=== PATIENT | male | born 1960 ===

== ENCOUNTER 2018-07-31 08:01 | Observation (INO) | payer OTHER ==
[~2018-07-31] VITALS: Ht 177.8 cm; Wt 117.9 kg
[2018-07-31] MEDS ORDERED: NS(*) 0.9% 1000 ML BAG 1,000 ML IV ONE (08:20)
--- NOTE | 2018-07-31 08:38 | ER Report ---
History and Physical Time Seen By MD: 08:05 Hx. of Stated Complaint: CP SINCE 0300 HPI/ROS CHIEF COMPLAINT: Chest pain HISTORY OF PRESENT ILLNESS: 58-year-old male with history of cardiac catheterization in 2009 showing 50% occlusion of the LAD by his report, presents with chest pressure that began at 3 AM and woke him up and continued through the night. Patient states that pressure has been severe, feels like pressure, radiates across chest and to his shoulders. It does not radiate to jaw, arms, back. He has had chest pain before but not like this. It is associated with lightheadedness. EMS administered 3 aspirin as well as 3 nitroglycerin, after which his pressure improved to 2 out of 10. It is currently 1-1/2 out of 10. It is now persisted for 5 hours consistently. 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 He has no leg pain. He has never had a DVT or PE. He does have a family history of coronary artery disease with a father who had multiple heart attacks. He is treated for hypertension and hypercholesterol though does not use tobacco. He has been told he has prediabetes but is not on insulin. REVIEW OF SYSTEMS: Constitutional: No fever, no chills; lightheaded as above Eyes: no blurred vision ENT: No sore throat. Cardiovascular: above Respiratory: No cough, no shortness of breath. Gastrointestinal: No abdominal pain, no vomiting. Genitourinary: no dysuria Musculoskeletal: No back pain. Skin: No rashes. Neurological: lightheaded as above Remainder of the 14 system rev: Yes Allergies: Coded Allergies: oxycodone (Verified Allergy, Intermediate, N/V, 07/31/18) Home Meds Reported Medications Lisinopril (LISINOPRIL) 20 Mg Tablet, 20 MG PO QDAY, TAB 07/31/18 Aspirin (ASPIR 81) 81 Mg Tablet.dr, 81 MG PO QDAY, TAB 07/31/18 Multivitamin (MULTIVITAMINS) 1 Each Capsule, 1 EACH PO QDAY, CAPSULE 07/31/18 Atorvastatin Calcium (LIPITOR) 40 Mg Tablet, 1 TAB PO QDAY, TAB 07/31/18 Celecoxib (CELEBREX) 200 Mg Capsule, 200 MG PO QDAY, CAPSULE 07/31/18 Reviewed Nurses Notes: Yes Constitutional Vital Sign - Last 24 Hours 07/31/18 07/31/18 07/31/18 07/31/18 08:11 08:11 08:30 09:00 Temp 98.0 Pulse 68 67 61 Resp 20 12 10 B/P (MAP) 124/78 128/78 (95) 123/71 (88) Pulse Ox 97 98 98 O2 Delivery Room Air O2 Flow Rate 2.0 07/31/18 07/31/18 07/31/18 07/31/18 09:30 10:00 10:30 11:00 Pulse 68 59 62 66 Resp 16 15 17 24 B/P (MAP) 130/73 (92) 114/72 (86) 128/76 (93) 137/80 (99) Pulse Ox 98 98 98 100 07/31/18 12:00 Pulse 69 Resp 16 Pulse Ox 99 Physical Exam General Appearance: The patient is alert, has no immediate need for airway protection and no signs of toxicity. [ ] Eyes: Pupils equal and round no pallor or injection. ENT, Mouth: Mucous membranes are moist. Respiratory: There are no retractions, lungs are clear to auscultation. Cardiovascular: Regular rate and rhythm. no m/r/g. No carotid bruit Gastrointestinal: Abdomen is soft and non tender, no masses, bowel sounds normal. Neurological: alert, moves all ext Skin: Warm and dry, no rashes. Musculoskeletal: Neck is supple non tender. Extremities are nontender; pt has very mild bilat lower extremity edema; he has full range of motion. DIFFERENTIAL DIAGNOSIS: After history and physical exam differential diagnosis was considered for chest pain including but not limited to myocardial ischemia, pericarditis, aortic dissection, pulmonary embolus, chest wall pain, pleural inflammation and pulmonary infectious causes. Medical Decision Making Data Points Result Diagram: 07/31/18 0810 07/31/18 0810 Laboratory Hematology Test 07/31/18 08:10 Red Blood Count 4.50 M/uL (4.00-5.60) Mean Corpuscular Volume 89.0 fL (80.0-96.0) Mean Corpuscular Hemoglobin 30.4 pg (26.0-33.0) Mean Corpuscular Hemoglobin Concent 34.2 g/dL (32.0-36.0) Red Cell Distribution Width 14.9 % (11.5-14.5) Mean Platelet Volume 8.0 fL (7.2-11.1) Neutrophils (%) (Auto) 68.3 % (39.4-72.5) Lymphocytes (%) (Auto) 20.3 % (17.6-49.6) Monocytes (%) (Auto) 9.1 % (4.1-12.4) Eosinophils (%) (Auto) 1.6 % (0.4-6.7) Basophils (%) (Auto) 0.7 % (0.3-1.4) Nucleated RBC Relative Count (auto) 0.0 /100WBC Neutrophils # (Auto) 5.2 K/uL (2.0-7.4) Lymphocytes # (Auto) 1.6 K/uL (1.3-3.6) Monocytes # (Auto) 0.7 K/uL (0.3-1.0) Eosinophils # (Auto) 0.1 K/uL (0.0-0.5) Basophils # (Auto) 0.1 K/uL (0.0-0.1) Nucleated RBC Absolute Count (auto) 0.00 K/uL Prothrombin Time 12.9 seconds (12.0-14.4) Prothromb Time International Ratio 0.97 Activated Partial Thromboplast Time 26 seconds (23-35) D-Dimer Quantitative (PE/DVT) < 0.27 ug/ml (0-0.50) Sodium Level 142 mmol/L (137-145) Potassium Level 3.7 mmol/L (3.5-5.0) Chloride Level 109 mmol/L (98-107) Carbon Dioxide Level 26 mmol/L (22-30) Blood Urea Nitrogen 17 mg/dl (9-21) Creatinine 1.00 mg/dl (0.66-1.25) Glomerular Filtration Rate Calc > 60.0 Random Glucose 104 mg/dl (75-110) Calcium Level 8.7 mg/dl (8.4-10.2) Total Bilirubin 0.7 mg/dl (0.2-1.3) Aspartate Amino Transf (AST/SGOT) 30 U/L (0-35) Alanine Aminotransferase (ALT/SGPT) 34 U/L (0-56) Alkaline Phosphatase 149 U/L (0-126) B-Type Natriuretic Peptide 10 pg/ml (0-100) Total Protein 6.7 g/dl (6.3-8.2) Albumin 3.8 g/dl (3.5-5.0) Lipase 191 U/L (23-300) Chemistry Test 07/31/18 08:10 White Blood Count 7.7 k/uL (4.5-11.0) Red Blood Count 4.50 M/uL (4.00-5.60) Hemoglobin 13.7 g/dL (14.0-18.0) Hematocrit 40.0 % (42.0-52.0) Mean Corpuscular Volume 89.0 fL (80.0-96.0) Mean Corpuscular Hemoglobin 30.4 pg (26.0-33.0) Mean Corpuscular Hemoglobin Concent 34.2 g/dL (32.0-36.0) Red Cell Distribution Width 14.9 % (11.5-14.5) Platelet Count 302 K/uL (150-450) Mean Platelet Volume 8.0 fL (7.2-11.1) Neutrophils (%) (Auto) 68.3 % (39.4-72.5) Lymphocytes (%) (Auto) 20.3 % (17.6-49.6) Monocytes (%) (Auto) 9.1 % (4.1-12.4) Eosinophils (%) (Auto) 1.6 % (0.4-6.7) Basophils (%) (Auto) 0.7 % (0.3-1.4) Nucleated RBC Relative Count (auto) 0.0 /100WBC Neutrophils # (Auto) 5.2 K/uL (2.0-7.4) Lymphocytes # (Auto) 1.6 K/uL (1.3-3.6) Monocytes # (Auto) 0.7 K/uL (0.3-1.0) Eosinophils # (Auto) 0.1 K/uL (0.0-0.5) Basophils # (Auto) 0.1 K/uL (0.0-0.1) Nucleated RBC Absolute Count (auto) 0.00 K/uL Prothrombin Time 12.9 seconds (12.0-14.4) Prothromb Time International Ratio 0.97 Activated Partial Thromboplast Time 26 seconds (23-35) D-Dimer Quantitative (PE/DVT) < 0.27 ug/ml (0-0.50) Glomerular Filtration Rate Calc > 60.0 Calcium Level 8.7 mg/dl (8.4-10.2) Total Bilirubin 0.7 mg/dl (0.2-1.3) Aspartate Amino Transf (AST/SGOT) 30 U/L (0-35) Alanine Aminotransferase (ALT/SGPT) 34 U/L (0-56) Alkaline Phosphatase 149 U/L (0-126) B-Type Natriuretic Peptide 10 pg/ml (0-100) Total Protein 6.7 g/dl (6.3-8.2) Albumin 3.8 g/dl (3.5-5.0) Lipase 191 U/L (23-300) Coagulation Test 07/31/18 08:10 Prothrombin Time 12.9 seconds Prothromb Time International Ratio 0.97 Activated Partial Thromboplast Time 26 seconds D-Dimer Quantitative (PE/DVT) < 0.27 ug/ml EKG/Imaging EKG Interpretation 12 lead EKG: Rhythm: Normal sinus rhythm [place]: Normal QRS: Normal ST segments: Normal Rate 65; no st elevation or depression; 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 He has multiple cardiac risk factors and a heart score greater than 4. His EKG 2 and troponin are negative in the emergency department however I am concerned for anginal chest pain and we will admit for telemetry and continued monitoring. While he may need a cardiac catheterization if he does not have EKG or troponin changes in hospitalization he may not receive an inpatient cardiac catheterization, so it is reasonable to monitor him here. I also considered infection, PE, aortic dissection or other emergent etiology. However these are less likely after ED monitoring. Patient continues to feel mildly uncomfortable though without chest pressure while awaiting admission. Procedure Results: I performed ED echocardiogram ultrasound. The results of the study are no significant effusion, LV > RV, no gross wall motion abnormality. I performed and read the study myself. Decision to Disposition Date: Jul 31, 2018 Decision to Disposition Time: 11:50 Depart Departure Latest Vital Signs Vital Signs Date Time Temp Pulse Resp B/P (MAP) Pulse Ox O2 Delivery O2 Flow Rate FiO2 07/31/18 12:00 69 16 99 07/31/18 11:00 137/80 (99) 07/31/18 08:11 2.0 07/31/18 08:11 98.0 Room Air Impression: Primary Impression: Chest pain Condition: Improved Disposition: Admitted from ER Problem Qualifiers Primary Impression: Chest pain Chest pain type: unspecified Qualified Codes: R07.9 - Chest pain, unspecified SEAN DELANEY MD Jul 31, 2018 08:38
[2018-07-31 08:40] LABS: PLATELET COUNT, AUTOMATED 302 K/uL (150-450)
[2018-07-31 08:46] LABS: INR 0.97
--- NOTE | 2018-07-31 08:47 | EKG ---
FACILITY: [facility] - [place] PATIENT NAME: SHANTANU HUGHES : [id number] MR: [id number] V: [id number] EXAM DATE: ORDERING PHYSICIAN: SEAN DELANEY TECHNOLOGIST: LIZ Test Reason : CP Blood Pressure : / mmHG Vent. Rate : 065 BPM Atrial Rate : 065 BPM P-R Int : 164 ms QRS Dur : 098 ms QT Int : 404 ms P-R-T Axes : -13 002 026 degrees QTc Int : 420 ms Normal sinus rhythm Normal ECG No previous ECGs available Confirmed by Vineet Merchant ([id number]) on 08/01/2018 12:19:18 AM Referred By: ELAINA Confirmed By:Vineet Hester
--- NOTE | 2018-07-31 08:59 | RADIOLOGY IMAGING REPORT ---
FACILITY: [facility] - [place] PATIENT NAME: Nacho Valladares : 1960 MR: [id number] V: [id number] EXAM DATE: ORDERING PHYSICIAN: SEAN DELANEY TECHNOLOGIST: Location: [facility] Patient: Nacho Valladares : 1960 Visit/Account:[id number] Date of Sevice: 07/31/2018 EXAMINATION: Portable AP Chest 07/31/2018 8:20 AM HISTORY: chest pain COMPARISON: None available FINDINGS: Cardiomediastinal contours: Normal heart size. Mediastinal contours are unremarkable. Lungs and pleura: Slightly prominent reticular markings the lungs which are likely chronic, accentuat ed by the diminished penetration secondary to body habitus. No significant parenchymal edema or focal infiltrate/consolidation evident. Pleural spaces are clear. Bones/soft tissues: Normal IMPRESSION: No acute-appearing cardiopulmonary abnormality. Report Dictated By: Lucas Baltazar MD at 07/31/2018 8:54 AM Report E-Signed By: Lucas Baltazar MD at 07/31/2018 8:55 AM WSN:[id number]
--- NOTE | 2018-07-31 11:42 | EKG ---
FACILITY: [facility] PATIENT NAME: SHANTANU HUGHES : [id number] MR: [id number] V: [id number] EXAM DATE: ORDERING PHYSICIAN: SEAN DELANEY TECHNOLOGIST: LIZ Test Reason : REPEAT Blood Pressure : / mmHG Vent. Rate : 063 BPM Atrial Rate : 063 BPM P-R Int : 164 ms QRS Dur : 096 ms QT Int : 406 ms P-R-T Axes : -14 009 018 degrees QTc Int : 415 ms Normal sinus rhythm Low voltage QRS Borderline ECG When compared with ECG of 31-JUL-2018 08:31, No significant change was found Confirmed by Vineet Merchant ([id number]) on 08/01/2018 12:20:06 AM Referred By: ELAINA Confirmed By:Vineet Hester
[2018-07-31 13:00] VITALS: BP 152/82
[2018-07-31] MEDS ORDERED: CELE-1 PO (13:17)
[2018-07-31] MEDS ORDERED: ATOR40TA24 PO (13:17)
[2018-07-31] MEDS ORDERED: MULT1CAP59 PO (13:17)
[2018-07-31] MEDS ORDERED: LISI20TA29 PO (13:17)
[2018-07-31] MEDS ORDERED: ASPI-1471 PO (13:17)
[2018-07-31 15:43] VITALS: BP 135/73
[2018-07-31] MEDS ORDERED: FLUSH 10 ML SYR IVP PRN (16:00)
[2018-07-31] MEDS ORDERED: ONDANSETRON 4 MG/2 ML VIAL IVP PRN (16:00)
[2018-07-31] MEDS ORDERED: ACETAMINOPHEN 325 MG TAB PO PRN (16:00)
--- NOTE | 2018-07-31 16:09 | History & Physical ---
History of Present Illness Chief Complaint CP History of Present Illness 58M presented with onset chest tightness 3 am. PMHx significant for HTN, prediabetes. 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 Relieved with 3 sprays nitro from EMS. Denies ongoing CP. Reports history of heart catheterization and non-obstructing lesion. Follows with cardiology in [place] where he lives last stress test 1.5 years ago with no ischemia identified. Negative troponin in ER he was recommended for extended observation due to risk factors. FMHx of CAD in father Dx 45 years old. History Problems: (1) HTN (hypertension) Home Meds Reported Medications Lisinopril (LISINOPRIL) 20 Mg Tablet, 20 MG PO QDAY, TAB 07/31/18 Aspirin (ASPIR 81) 81 Mg Tablet.dr, 81 MG PO QDAY, TAB 07/31/18 Multivitamin (MULTIVITAMINS) 1 Each Capsule, 1 EACH PO QDAY, CAPSULE 07/31/18 Atorvastatin Calcium (LIPITOR) 40 Mg Tablet, 1 TAB PO QDAY, TAB 07/31/18 Celecoxib (CELEBREX) 200 Mg Capsule, 200 MG PO QDAY, CAPSULE 07/31/18 Allergies: Coded Allergies: oxycodone (Verified Allergy, Intermediate, N/V, 07/31/18) Patient History: FH: cardiovascular disease FATHER MOTHER FH: diabetes mellitus MOTHER Hx Smoking: Yes Smoking Status: Former Smoker Hx Alcohol Use: No Hx Substance Use Disorder: No Review of Systems Neurological: No Syncope Cardiovascular: Chest Pain Gastrointestinal: No Nausea, No Vomiting Exam Vital Signs Vital Signs Date Time Temp Pulse Resp B/P (MAP) Pulse Ox O2 Delivery O2 Flow Rate FiO2 07/31/18 15:43 98.5 71 18 135/73 (93) 91 Room Air 07/31/18 13:00 5.0 General Appearance: Alert, Awake, No Acute Distress, Afebrile Neuro: No Gross deficits ENT: Normal Cardiovascular: Normal Rhythm & Peripheral Pulses Respiratory: No Respiratory Distress GI: Abd Soft and Non-Tender Extremities: Soft and Non Tender, Warm, Pulses, Perfused; No Edema Medical Decision Making Data Points Result Diagram: 07/31/18 0810 07/31/18 0810 EKG / Imaging EKG Interpretation NSR Monitor Interpretation: Normal Sinus Rhythm Assessment and Plan Problems: (1) Chest pain Assessment & Plan: Two negative troponin, no dynamic EKG changes. Unlikely cardiac pain, will get third troponin and EKG if negative follow up outpatient with cardiology. (2) HTN (hypertension) Assessment & Plan: On lisinopril, continue. Venous Thromboembolism Antithrombotics Is Pt On Any Antithrombotics?: Yes Exam Sepsis Risk: No Definite Risk BLOOM KAILA PITTS DO Jul 31, 2018 16:09
--- NOTE | 2018-07-31 18:48 | EKG ---
FACILITY: [facility] - [place] PATIENT NAME: SHANTANU HUGHES : [id number] MR: [id number] V: [id number] EXAM DATE: ORDERING PHYSICIAN: KAILA PITTS TECHNOLOGIST: LIZ Test Reason : REPEAT Blood Pressure : / mmHG Vent. Rate : 068 BPM Atrial Rate : 068 BPM P-R Int : 180 ms QRS Dur : 096 ms QT Int : 384 ms P-R-T Axes : 026 003 020 degrees QTc Int : 408 ms Normal sinus rhythm Inferior infarct , age undetermined Abnormal ECG When compared with ECG of 31-JUL-2018 10:35, No significant change was found Confirmed by Kaila Merchant ([id number]) on 08/01/2018 12:26:10 AM Referred By: VIANEY Confirmed By:Kaila Pitts
[2018-07-31 19:41] VITALS: BP 141/78
[2018-07-31] MEDS ORDERED: ATORVASTATIN 40 MG TAB PO SCH (21:00)
[2018-07-31 23:31] VITALS: BP 135/77
[2018-08-01 03:53] VITALS: BP 151/84
[2018-08-01 08:45] VITALS: BP 149/90
[2018-08-01] MEDS ORDERED: ASPIRIN 81 MG ENTERIC COATED PO SCH (09:00)
[2018-08-01] MEDS ORDERED: ENOXAPARIN 40 MG/0.4ML SYR SC SCH (09:00)
[2018-08-01] MEDS ORDERED: LISINOPRIL 20 MG TAB PO SCH (09:00)
[2018-08-01 09:25] VITALS: Ht 177.8 cm; Wt 117.9 kg
--- NOTE | 2018-08-01 09:39 | Hospitalist Depart ---
Discharge Summary Reason for Hosp/Final Diag: (1) Chest pain Hospital Course & Plan: Three negative troponin, no dynamic EKG changes. 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 (2) Dizziness Hospital Course & Plan: Likely secondary to altitude sickness. He was evaluated by PT. Appears stable for discharge, recommend not driving until dizziness resolves. If persists follow up with PCP for further evaluation. (3) HTN (hypertension) Hospital Course & Plan: On lisinopril, continue. Departure Weight (Pounds): 260 Result Diagram: 07/31/18 0810 07/31/18809 Condition: Improved Discharge: Home Discharge Instructions Home Meds Reported Medications Lisinopril (LISINOPRIL) 20 Mg Tablet, 20 MG PO QDAY, TAB 07/31/18 Aspirin (ASPIR 81) 81 Mg Tablet.dr, 81 MG PO QDAY, TAB 07/31/18 Multivitamin (MULTIVITAMINS) 1 Each Capsule, 1 EACH PO QDAY, CAPSULE 07/31/18 Atorvastatin Calcium (LIPITOR) 40 Mg Tablet, 1 TAB PO QDAY, TAB 07/31/18 Celecoxib (CELEBREX) 200 Mg Capsule, 200 MG PO QDAY, CAPSULE 07/31/18 Diet: Regular Activity: As Tolerated Special Instructions: Do not drive until dizziness improves. If diziness persists follow up with PCP. Follow up with your missile inspector preflight for further evaluation of chest pain. Venous Thromboembolism Antithrombotics Is Pt On Any Antithrombotics?: Yes Problem Qualifiers (1) Chest pain: Chest pain type: unspecified Qualified Codes: R07.9 - Chest pain, unspecified KAILA ARGUELLES DO Aug 01, 2018 09:39
--- NOTE | 2018-08-01 11:32 | NUR ---
Physical Therapy Impression PT eval complete. Pt completed all mobility with Fiona with use of RW for stability d/t dizziness. At end of session, pt tested with bilateral luke coles pike, + for R) posterior BPPV. Pt with nystagmus with R) coles pike maneuver and emesis with return to sitting position. Plan to f/u later today for treatment with justo maneuver. Physical Therapy Goals 1: Pt to be educated in self treatment of BPPV Patient's Goals
--- NOTE | 2018-08-01 13:39 | NUR ---
Physical Therapy Impression Pt treated with Chidi maneuver to treat R) posterior canalithiasis. Pt with good response to treatment, but with vomiting upon return to seated position. Pt does report improvement in dizziness after treatment. PT educated pt on BPPV and provided pt with handouts for self treatment at home. Pt verbalizes understanding. PT returned at 1550 to complete final treatment with Chidi, pt politely declined. Reporting that he would prefer to not be nauseous upon d/c. PT educated pt on the importance of continuing to treat with Chidi maneuver upon d/c until symptoms completely resolve. No further PT visits planned. Physical Therapy Goals 1: Pt to be educated in self treatment of BPPV Patient's Goals
[2018-08-01 16:22] VITALS: BP 145/85
[2018-08-03] MEDS ORDERED: INFLUENZA VIRUS VAC 0.5ML SYR IM ONLY ONE (09:00)
== END 2018-08-01 09:34 | disposition home or self-care (01) ==
LOC: ER 08:10 → MED 12:33 → INTOOBSV 12:33
PROVIDERS: ADMIT Internal Medicine; ATTEND Internal Medicine
DX: R07.9 Chest pain, unspecified (principal); I10 Essential (primary) hypertension; R42 Dizziness and giddiness; M25.512 Pain in left shoulder; M25.511 Pain in right shoulder
CPT/HCPCS: 36415; 71045; 83690; 83880; 84484; 85025; 85379; 85610; 85730; 93005; 96372; 97112; 97161; 99284; G0378; J1650; J7030; 82040; 82247; 82310; 82374; 82435; 82565; 82947; 84075; 84132; 84155; 84295; 84450; 84460; 84520

== ENCOUNTER → 2018-07-31 | Outpatient (CLI) | payer OTHER ==
[~2018-07-31] MED LIST: ASPI-1471 PO; ATOR40TA24 PO; CELE-1 PO; LISI20TA29 PO; MULT1CAP59 PO
[2018-08-01 09:25] VITALS: BMI 37.3
== END ==
LOC: AMB 07:49
PROVIDERS: ATTEND Nurse Practitioner
DX: R07.9 Chest pain, unspecified (principal)
CPT/HCPCS: A0425; A0427